=== PATIENT | female | born 1980 | race Caucasian/White ===

== ENCOUNTER 2020-08-05 09:00 | Outpatient (CLI) | payer MEDICARE | END 2020-08-05 09:01 | disposition home or self-care (01) | LOC: CSHCT 09:00 | PROVIDERS: ATTEND Nurse Practitioner Family | DX: E28.2 Polycystic ovarian syndrome (principal); N73.6 Female pelvic peritoneal adhesions (postinfective); N20.0 Calculus of kidney; R10.2 Pelvic and perineal pain; E83.42 Hypomagnesemia; D72.829 Elevated white blood cell count, unspecified; N28.1 Cyst of kidney, acquired | CPT/HCPCS: 74177 ==

== ENCOUNTER 2021-12-21 15:16 | Outpatient (CLI) | payer MEDICARE | END 2021-12-21 15:17 | disposition home or self-care (01) | LOC: CSHULT 15:16 | PROVIDERS: ATTEND Nurse Practitioner Family | DX: N20.2 Calculus of kidney with calculus of ureter (principal) | CPT/HCPCS: 76770; 76856 ==

== ENCOUNTER 2022-05-10 13:55 | Outpatient (CLI) | payer MEDICARE | END 2022-05-10 13:56 | disposition home or self-care (01) | LOC: CSHULT 13:55 | PROVIDERS: ATTEND Urology | DX: N20.0 Calculus of kidney (principal); N28.1 Cyst of kidney, acquired; N28.89 Other specified disorders of kidney and ureter | CPT/HCPCS: 76770 ==

== ENCOUNTER 2024-12-31 13:17 | Outpatient (CLI) | payer MEDICARE | END 2024-12-31 13:18 | disposition home or self-care (01) | LOC: CSHULT 13:17 | PROVIDERS: ATTEND Nurse Practitioner Family | DX: K46.9 Unspecified abdominal hernia without obstruction or gangrene (principal) | CPT/HCPCS: 76999 ==